=== PATIENT | female | born 1990 | race Caucasian/White ===

== ENCOUNTER 2016-11-02 23:08 | Emergency (ER) | payer OTHER | END 2016-11-02 23:55 | disposition home or self-care (01) | LOC: ER 23:08 | DX: K64.8 Other hemorrhoids (principal); J45.909 Unspecified asthma, uncomplicated; I10 Essential (primary) hypertension; F17.210 Nicotine dependence, cigarettes, uncomplicated; Z88.2 Allergy status to sulfonamides ==